=== PATIENT | female | born 1990 | race African-American/Black ===

== ENCOUNTER 2025-01-13 19:48 | Emergency (ER) | payer BC, OTHER, SELFPAY ==
--- NOTE | 2025-01-13 19:49 | ED.FEMALEGU ---
HPI - Female Genitourinary General Chief complaint: Urogenital-Female Stated complaint: urinary issue Time Seen by Provider: 01/13/25 19:49 Source: patient Mode of arrival: ambulatory Limitations: no limitations History of Present Illness HPI Narrative: Snow is a 34-year-old female patient presenting to the clinic today with complaints of a possible UTI x2 days. She reports she is having some pressure in her lower pelvis/suprapubic area and low back pain. Also reports some brown vaginal discharge with odor. Just finished her menses 2 days ago. Has a new sexual partner-establish relationship in October. Would like testing for STIs. Denies any fevers, chills, body aches. History of BV and Trichomonas in the past. Related Data Home Medications ?Medication ?Instructions ?Recorded ?Confirmed ?Last Taken ?Type albuterol sulfate 90 mcg/actuation inhalation 01/13/25 Unknown History aerosol inhaler fluoxetine 20 mg capsule mg 01/13/25 Unknown History topiramate 25 mg tablet mg 01/13/25 Unknown History Allergies Allergy/AdvReac Type Severity Reaction Status Date / Time metronidazole Allergy Mild hives Verified 01/13/25 20:01 NSAIDS (Non-Steroidal AdvReac Unknown other Verified 01/13/25 20:01 Anti-Inflamma Review of Systems Review of Systems: Pertinent positives per HPI. Patient denies any fever, chills, rash, headache, visual changes, dizziness, cough, runny nose, sore throat, shortness of breath, chest pain, palpitations, nausea, vomiting, diarrhea, constipation PMFSH Comments At the time of my signature, I reviewed and agree with the nursing past medical, surgical, social, and family history. There is no relevant family history pertinent to the patient complaint. Exam Narrative: General: Well-developed, well nourished, in no apparent distress Head: Normocephalic, atraumatic. Cardio: Regular rate and rhythm, s1 and s2 normal, no murmur appreciated. Resp: Clear to auscultation bilaterally, no rhonchi, rales, wheezing or rubs. Abdomen: Soft, pliable, bowel sounds present in all quadrants, suprapubic tender to palpation, no CVAT tenderness. : Pelvic exam performed with (Adri HUGGINS) at bedside. Verbal consent obtained from patient. Normal external female genitalia without lesions or masses, Urinary meatus: patent without discharge, Vagina: No lesions or mass, brown vaginal discharge Cervix: pink without mass, lesions, or tenderness. Course Course Emergency Course: Portions of this record may have been created with voice recognition software. Level of Care: Express Care Visit Vital Signs Vital signs: Vital Signs Temperature 36.9 C 01/13/25 19:55 Pulse Rate 79 01/13/25 19:55 Respiratory Rate 18 01/13/25 19:55 Blood Pressure 148/74 H 01/13/25 19:55 Pulse Oximetry 100 01/13/25 19:55 Oxygen Delivery Room Air 01/13/25 19:55 Temperature 36.9 C 01/13/25 19:55 Pulse Rate 79 01/13/25 19:55 Respiratory Rate 18 01/13/25 19:55 Blood Pressure 148/74 H 01/13/25 19:55 Pulse Oximetry 100 01/13/25 19:55 Oxygen Delivery Room Air 01/13/25 19:55 Vital signs reviewed MDM - Female Genitourinary MDM Narrative Medical decision making narrative: At the time of visit patient is resting comfortably on the exam table. Patient appears to be nontoxic. Labs: Urinalysis shows trace of ketones and blood. GC, chlamydia, gonorrhea, Trichomonas, BV, and genital culture was obtained and sent to the lab Plan: I suspect patient has vaginal discharge/pelvic pain with low back pain likely due to bacterial vaginosis. Prescription for metronidazole was sent to the pharmacy. Patient reports that she took metronidazole approximately 1 year ago and did not have any allergic reaction and is requesting this medication. Supportive measures were discussed with the patient and they voiced understanding discharge instructions and agrees to treatment plan. Return precautions reviewed Differential Diagnosis Differential diagnosis: Likely urinary tract infection, bacterial vaginosis, trichomoniasis, cervicitis, ovarian cyst, vaginitis, ruptured ovarian cyst, cyst of Bartholin's gland, cystitis, dysmenorrhea and other (STI) Lab Data Labs: Lab Results 01/13/25 01/13/25 Range/Units 20:00 20:04 POC Urine Color Dark POC Urine Clarity Clear POC Urine pH 6.5 POC Ur Specif [place] 1.025 POC Urine Protein Negative (Negative) POC Ur Glucose (UA) Negative (Negative) POC Urine Ketones Trace (Negative) POC Urine Blood Trace (Negative) POC Urine Nitrite Negative (Negative) POC Urine Bilirubin Negative (Negative) POC Urine Urobilinogen 1.0 POC U Leukocyte Esteras Negative (Negative) Bact Vaginosis Panel Pending Discharge Plan Discharge Clinical Impression: Vaginal discharge, Pelvic pain Patient Disposition: Home Condition: Stable Instructions: Antibiotic Form, Pelvic Pain in Women (ED), Vaginal Discharge (ED) Additional Instructions: We have tested you for STIs in the clinic today. Avoid any sexual activity- includes oral, anal, or vaginal intercourse until you get results back and have completed any additional recommended treatment regimens. We will contact you if testing is positive or negative and make sure your treatment was appropriate for the type of STI. If symptoms worsen after treatment recommend reevaluation with your PCP or STI clinic Urinalysis positive for trace of ketone and trace of blood. No sign of infection Increase fluids and stay well hydrated Wipe front to back. May use wet wipes. Avoid tub baths If sexually active- pee before and after intercourse. Wear cotton panties Avoid tight clothing up against the genitals Follow up with your PCP in 1 week if symptoms persist. Patient Language: Lao Prescriptions: New metronidazole 500 mg tablet 500 mg PO BID 7 Days Qty: 14 0RF Rx Instructions: patient denies allergy to Flagyl No Action topiramate 25 mg tablet albuterol sulfate 90 mcg/actuation HFA aerosol inhaler INHALATION fluoxetine 20 mg capsule Follow-up/Referrals: PHYSICIAN NOT ON STAFF,NONSTAFF [Primary Care Provider] - Time of Disposition: 20:15 Quality NIHSS Nursing Documentation ED NIHSS nursing documentation: reviewed/agree
[2025-01-13 19:55] VITALS: BP 148/74; PULSE 79; RESP 18; TEMP 36.9; O2SAT 100
[2025-01-13 20:04] LABS: EDUAAPPEAR Clear; EDUABILI Negative (Negative); EDUABLOOD Trace (Negative); EDUACOLOR1 Dark; EDUAGLUCOSE Negative (Negative); EDUAKETONE Trace (Negative); EDUALEUKO Negative (Negative); EDUANITRATE Negative (Negative); EDUAPH 6.5; EDUAPROTEIN Negative (Negative); EDUASPGRAVITY 1.025
[2025-01-14 21:40] LABS: Trichomonas Vag PCR NOT DETECTED (NOT DETECTE)
[2025-01-14 21:41] LABS: Chlamydia trachomatis NOT DETECTED (NOT DETECTE); Neisseria gonorrhoeae PCR NOT DETECTED (NOT DETECTE)
[2025-01-15 19:17] LABS: Bacterial Vaginosis NEGATIVE (NEGATIVE)
== END 2025-01-13 20:20 | disposition home or self-care (01) ==
PROVIDERS: Emergency Provider Nurse Practitioner Family
DX: N89.8 Other specified noninflammatory disorders of vagina (principal); R10.2 Pelvic and perineal pain; J45.909 Unspecified asthma, uncomplicated
CPT/HCPCS: 81003; 81513; 87070; 87491; 87591; 87661; 99213; G0463